=== PATIENT | male | born 1990 | race Caucasian/White ===

== ENCOUNTER 2017-09-19 12:36 | Emergency (ER) | payer OTHER ==
[~2017-09-19] VITALS: Ht 182.9 cm; Wt 95.0 kg
[2017-09-19 14:23] VITALS: BP 115/70
== END 2017-09-19 14:24 | disposition home or self-care (01) ==
LOC: EME 12:36
PROC: 0JQG0ZZ Repair Right Lower Arm Subcutaneous Tissue and Fascia, Open Approach (ICD-10-PCS; principal; 2017-09-19)
DX: S61.511A Laceration without foreign body of right wrist, initial encounter (principal); W26.8XXA Contact with other sharp object(s), not elsewhere classified, initial encounter
CPT/HCPCS: 99281; 99283